=== PATIENT | male | born 1985 | race Caucasian/White ===

== ENCOUNTER 2021-01-21 15:25 | Outpatient (CLI) | payer OTHER, SELFPAY ==
--- NOTE | 2021-01-21 16:04 | CT_ITS ---
WS: [id number] CT SINUSES TECHNIQUE: Noncontrast CT of the paranasal sinuses with coronal and sagittal reformatted images. CLINICAL INFORMATION: H70.92 - Unspecified mastoiditis, left ear COMPARISON: None. DLP: 338.[address] scans at [facility] use at least one of these dose optimization techniques: automat ed exposure control; mA and/or kV adjustment per patient size (includes targeted exams where dose is matched to clinical indication); or iterative reconstruction. FINDINGS: BB marker in the area of palpable concern posterior to the left ear. No evidence of suspicious underl william mass or lesion. Small incidental lymph node and small vessel in this area likely correspond to t he palpable abnormality. Normal posterior nasopharynx. Mastoid air cells are well aerated. No evidence of mastoiditis. Mild na nicholas septal deviation measuring 3 mm. Mild mucosal thickening in the ethmoid air cells. Small retentio n cysts in the maxillary sinuses. Sphenoid sinuses are well aerated. Mild mucosal thickening along th e sphenoid sinus ostia. Left cyndi bullosa. Mild narrowing of the ostiomeatal units bilaterally with mild mucosal thickening. CT/CT sinus wo con* [id number] IMPRESSION: 1. Palpable marker posterior to the left ear. No suspicious underlying abnorma lities. See description above. 2. Mastoid air cells well aerated. No evidence of mastoiditis. 3. Paranasal sinuses are well aerated. Mild nasal septal deviation measuring 3 mm. 4. Mild mucosal thickening in the ethmoid air cells with small retention cysts in the maxillary sinuses. 5. Normal posterior nasopharynx. 6. Left cyndi bullosa.
== END 2021-01-21 15:26 | disposition home or self-care (01) ==
LOC: RADWPI 15:46
PROVIDERS: PCP Registered Nurse; Visit Provider Registered Nurse
DX: H70.92 Unspecified mastoiditis, left ear (principal)
CPT/HCPCS: 70486

== ENCOUNTER → 2022-09-22 15:32 | Outpatient (BNVA) | payer OTHER, SELFPAY | PROVIDERS: PCP Registered Nurse; Visit Provider Registered Nurse | DX: I10 Essential (primary) hypertension (principal); E03.9 Hypothyroidism, unspecified | CPT/HCPCS: 84443 ==

== ENCOUNTER 2023-05-04 06:22 | Day surgery (SDC) | payer OTHER, SELFPAY ==
[2023-05-02 12:42] VITALS: BMI 34.4
[2023-05-04 06:38] VITALS: BP 134/78; PULSE 70; RESP 18; TEMP 36.6; O2SAT 95
[2023-05-04] MEDS: sodium chloride 0.9% 1,000 ML 30 ML IV (06:45)
--- NOTE | 2023-05-04 07:58 | W.PM.OPSUD ---
Surgery/Procedure H&P Update DATE OF PROCEDURE: May 04, 2023 DATE H&P PERFORMED: 04/25/23 H&P UPDATE INFORMATION: I have reviewed H&P completed within last 30 days, I have examined patient prior to procedure and No changes to prior documentation PLANNED PROCEDURE: Operation Date: 05/04/23 08:00 Proposed Procedures p Colonoscopy 32388 K92.1(Not Applicable) - Ravindra Hager DO
--- NOTE | 2023-05-04 08:07 | ANES.PREANE2 ---
Pre-Anesthetic Assessment Height/Weight: Height 1.78 m Weight 108.862 kg Temp Pulse Resp BP Pulse Ox O2 Del Method 97.8 F 70 18 134/78 95 Room Air 05/04/23 06:38 05/04/23 06:38 05/04/23 06:38 05/04/23 06:38 05/04/23 06:38 05/04/23 06:38 Operation Date: 05/04/23 08:00 Proposed Procedures p Colonoscopy 43222 K92.1(Not Applicable) - Ravindra Hager DO Familial anesthetic complications: none Was Clonidine taken within 24 hours: N/A Last intake: Intake Last Liquid Date 05/03/23 Last Liquid Time 22:00 Last Solid Date 05/02/23 Last Solid Time 20:00 Social No alcohol and No tobacco Exam alert and oriented x 3 Airway Submandibular: within normal limits Cervical ROM: within normal limits Mallampati: Class II Dentition: full History/ROS No significant complaints Anesthetic Plan ASA status: 1 Anesthesia: Anesthesia Evaluation, General and MAC Risk of > 500 ml blood loss (7ml/kg in children): No Medications/Allergies Home Medications Medication Instructions Recorded Confirmed Last Taken Type fexofenadine 180 mg tablet 180 mg PO DAILY 30 days #30 tabs 01/07/22 05/02/23 05/02/23 Rx ([facility]) Allergies Allergy/AdvReac Type Severity Reaction Status Date / Time No Known Allergies Allergy Verified 05/02/23 12:39 Current Medications Generic Name Dose Route Start Last Admin Trade Name Freq PRN Reason Stop Dose Admin Sodium Chloride 1,000 mls @ 30 mls/hr 05/04/23 06:30 05/04/23 06:45 Sodium Chloride 0.9% IV 05/05/23 06:29 30 mls/hr .Q24H CHERELLE Administration PFSH Anesthesia Medical History Anxiety Surgical History History of shoulder surgery Hx of cholecystectomy 10/2022 Family History Grandfather Hypertension Father Hypertension Denies family history of Diabetes CAD (coronary artery disease) Chronic kidney disease (CKD) Lung disease Cancer Stroke Social History Smoking and tobacco status: never smoked Alcohol intake: never Substance/Drug Use: never Adopted: No Caregiver/support person: No Lives independently: No Household members: spouse and children Housing: House Marital status: Current occupational status: employed Pets and animals: Yes Pets & animals: cat(s) and dog(s) Sexually active: Yes Do you think of yourself as: Straight/Heterosexual Current gender identity: Male Special kalyani needs: No Data Anesthesia Cardiac Studies: No Data to Display
[2023-05-04 08:24] VITALS: BP 117/79; PULSE 70; RESP 18; TEMP 36.1; O2SAT 95
--- NOTE | 2023-05-04 08:30 | ANE.PACU2 ---
Inpatient post-anesthesia follow up: Airway intact: Yes Vital signs: Temperature 97.0 F Pulse Rate 70 Respiratory Rate 18 Blood Pressure 117/79 Pulse Oximetry 95 Oxygen Delivery Me thod Room Air Oxygen Flow Rate Fraction of Inspir ed Oxygen Hydration adequate: Yes Nausea and vomiting: No Pain level: 1 Mental status: Baseline
[2023-05-04 08:35] VITALS: BP 127/64; PULSE 62; RESP 16; O2SAT 96
== END 2023-05-04 08:57 | disposition home or self-care (01) ==
PROVIDERS: PCP Registered Nurse; Visit Provider Surgery
PROC: 0DJD8ZZ Inspection of Lower Intestinal Tract, Via Natural or Artificial Opening Endoscopic (ICD-10-PCS; CPT 45378; principal; 2023-05-04 08:00)
DX: K92.1 Melena (principal); K64.8 Other hemorrhoids
CPT/HCPCS: 45378; J2704; J7030

== ENCOUNTER → 2025-01-10 10:18 | Outpatient (BNVA) | payer OTHER, SELFPAY | PROVIDERS: PCP Registered Nurse; Visit Provider Registered Nurse | DX: Z00.00 Encounter for general adult medical examination without abnormal findings (principal); Z13.6 Encounter for screening for cardiovascular disorders; Z13.1 Encounter for screening for diabetes mellitus | CPT/HCPCS: 80053; 80061; 83036; 85025 ==